=== PATIENT | male | born 1985 | race Caucasian/White ===

== ENCOUNTER 2017-01-23 23:31 | Emergency (ER) | payer OTHER ==
[~2017-01-23] VITALS: Ht 190.5 cm; Wt 115.0 kg
[2017-01-23 23:33] VITALS: BP 132/89
== END 2017-01-24 00:27 | disposition home or self-care (01) ==
LOC: ED 23:59
DX: S00.01XA Abrasion of scalp, initial encounter (principal); F10.10 Alcohol abuse, uncomplicated; Y04.0XXA Assault by unarmed brawl or fight, initial encounter; Y93.89 Activity, other specified; Y92.89 Other specified places as the place of occurrence of the external cause; Y99.8 Other external cause status
CPT/HCPCS: 99283